=== PATIENT | female | born 1970 | race American Indian/Alaskan Native ===

== ENCOUNTER 2018-07-16 12:42 | Emergency (ER) | payer BC ==
[2018-07-16 12:55] VITALS: BP 146/59
--- NOTE | 2018-07-16 13:25 | Emergency Department Report ---
ED Abdominal Pain HPI - General Chief Complaint: Abdominal Pain Stated Complaint: BLOOD TRANSFUSION Source: patient Mode of arrival: Ambulatory Limitations: No Limitations - History of Present Illness Initial Comments: This is a 47-year-old female who presents with upper abdominal pain. Patient states it feels like gas that she cannot leave. She reports having a bowel movement this morning that were hard balls. Patient states she was admitted here 2 days ago for anemia and blood transfusion. She was released this morning and reports feeling better. She denies chest pain, shortness of breath, nausea or vomiting, vaginal bleeding, frequency, urgency, dysuria, or vaginal discharge. MD Complaint: abdominal pain -: This morning Location: LUQ, RUQ Radiation: none Migration to: no migration Severity: mild Severity scale (0 -10): 0 Quality: cramping Consistency: intermittent Improves With: bowel movement Worsens With: nothing Associated Symptoms: denies other symptoms - Related Data LMP Date: 07/02/18 Previous Rx's Medication Instructions Recorded Last Taken Type Ferrous Sulfate [Feosol 325 MG tab] 325 mg PO BID #60 tablet 07/15/18 Unknown Rx Polyethylene Glycol/Elect 4,000 ml PO ONCE #1 bottle 07/16/18 Unknown Rx [Golytely] Allergies Allergy/AdvReac Type Severity Reaction Status Date / Time No Known Allergies Allergy Unverified 04/19/17 12:35 ED Review of Systems ROS: Stated complaint: BLOOD TRANSFUSION Other details as noted in HPI Constitutional: denies: chills, fever Respiratory: denies: cough, shortness of breath, wheezing Cardiovascular: denies: chest pain, palpitations Gastrointestinal: abdominal pain (upper abdominal cramping). denies: nausea, vomiting, diarrhea Musculoskeletal: denies: back pain, joint swelling, arthralgia Neurological: denies: headache, weakness, paresthesias Psychiatric: denies: anxiety, depression ED Past Medical Hx - Past Medical History Hx Congestive Heart Failure: No Hx Diabetes: No Hx Asthma: No Hx COPD: No Additional medical history: anemia - Surgical History Past Surgical History?: Yes Additional Surgical History: . tubal ligation - Social History Smoking Status: Current Every Day Smoker Substance Use Type: Marijuana - Medications Home Medications: Home Medications Medication Instructions Recorded Confirmed Last Taken Type Ferrous Sulfate [Feosol 325 MG tab] 325 mg PO BID #60 tablet 07/15/18 Unknown Rx Polyethylene Glycol/Elect 4,000 ml PO ONCE #1 bottle 07/16/18 Unknown Rx [Golytely] ED Physical Exam - General Limitations: No Limitations General appearance: alert, in no apparent distress, obese - Respiratory Respiratory exam: Present: normal lung sounds bilaterally. Absent: respiratory distress - Cardiovascular Cardiovascular Exam: Present: regular rate, normal rhythm. Absent: systolic murmur, diastolic murmur, rubs, gallop - GI/Abdominal GI/Abdominal exam: Present: soft, normal bowel sounds. Absent: distended, tenderness, guarding, rebound, rigid, organomegaly, mass - Back Exam Back exam: Absent: CVA tenderness (R), CVA tenderness (L) - Neurological Exam Neurological exam: Present: alert, oriented X3 - Psychiatric Psychiatric exam: Present: normal affect, normal mood - Skin Skin exam: Present: warm, dry, intact, normal color. Absent: rash ED Course Vital Signs 07/16/18 12:51 Temperature 98.5 F Pulse Rate 73 Respiratory 16 Rate Blood Pressure 146/59 O2 Sat by Pulse 100 Oximetry ED Medical Decision Making - Radiology Data Radiology results: report reviewed X-ray of abdomen impression: Large amount of retained stool in the colon. - Medical Decision Making This is a 47 y.o. female that presents with abdominal cramping for several days. Patient examined by me. No distress noted. Vitals stable. Obtained x-ray of abdomen. Large amount of retained stool in the colon. Given lactulose 20 gram by mouth once while in ER. Start GoLYTELY. Instructed to start miralax and docusate sodium. Increase fiber water intake for constipation. Follow up with [facility]. Critical care attestation.: If time is entered above; I have spent that time in minutes in the direct care of this critically ill patient, excluding procedure time. ED Disposition Clinical Impression: Constipation by delayed colonic transit Abdominal pain Qualifiers: Abdominal location: generalized Qualified Code(s): R10.84 - Generalized abdominal pain Disposition: TO HOME OR SELFCARE Is pt being admited?: No Does the pt Need Aspirin: No Condition: Stable Instructions: Abdominal Pain (ED), Constipation (ED), High Fiber Diet (ED) Additional Instructions: Increase fiber intake with foods and/or MiraLAX. Increase water intake and drink or eat prunes. Take colace daily to soften stool. Avoid taking laxatives during . Follow up with primary care provider. Prescriptions: Polyethylene Glycol/Elect [Golytely] 4,000 ml PO ONCE #1 bottle Referrals: BETSY RILEY [Primary Care Provider] - 3-5 Days [facility] [Provider Group] - 3-5 Days [facility] [Provider Group] - 3-[address] [facility] [Provider Group] - 3-5 Days Forms: Work/School Release Form(ED) Time of Disposition: 14:51
--- NOTE | 2018-07-16 14:23 | XRay Report ---
FINAL REPORT EXAM: XR ABDOMEN 2V HISTORY: upper abdominal pain TECHNIQUE: AP abdominal radiograph. PRIORS: None. FINDINGS: There is a large amount of retained stool in the colon. No bowel obstruction. No organomegaly or masses. No abnormal calcifications. No acute osseous abnormality. Tubal ligation clips project in the pelvis. IMPRESSION: Large amount of retained stool in the colon.
[2018-07-16] MEDS ORDERED: CEPHULAC PO ONE (14:31)
== END 2018-07-16 14:59 | disposition home or self-care (01) ==
LOC: ED 12:42
DX: K59.00 Constipation, unspecified (principal); F17.200 Nicotine dependence, unspecified, uncomplicated; F12.10 Cannabis abuse, uncomplicated
CPT/HCPCS: 74019

== ENCOUNTER 2020-08-30 15:32 | Emergency (ER) | payer BC ==
[2020-08-30] MEDS ORDERED: ASPIRIN 325 MG TAB PO ONE (15:52)
--- NOTE | 2020-08-30 16:15 | Event Note ---
ED Screening Note Date of service: 08/30/20 Time: 16:14 ED Screening Note: Patient presented with complaint of substernal chest pain and increased blood pain for the past 3 to 4 days. She was recently diagnosed with hypertension and started on hydrochlorothiazide. She has no other significant past history This initial assessment/diagnostic orders/clinical plan/treatment(s) is/are subject to change based on patients health status, clinical progression and re- assessment by fellow clinical providers in the ED. Further treatment and workup at subsequent clinical providers discretion. Patient/guardian urged not to elope from the ED as their condition may be serious if not clinically assessed and managed. Initial orders include: Chest pain order set
--- NOTE | 2020-08-30 16:29 | XRay Report ---
CHEST 2 VIEWS INDICATION / CLINICAL INFORMATION: Chest Pain. COMPARISON: 07/16/2018 abdominal radiograph FINDINGS: SUPPORT DEVICES: None. HEART / MEDIASTINUM: No significant abnormality. LUNGS / PLEURA: No significant pulmonary or pleural abnormality. No pneumothorax. ADDITIONAL FINDINGS: No significant additional findings. IMPRESSION: 1. No acute findings. Signer Name: Paulie Rosenberg MD Signed: 08/30/2020 4:24 PM Workstation Name: [id number]
--- NOTE | 2020-08-30 16:49 | Emergency Department Report ---
ED Chest Pain HPI - General Chief Complaint: Chest Pain Stated Complaint: CHEST PAIN Time Seen by Provider: 08/30/20 16:39 Source: patient Mode of arrival: Ambulatory Limitations: No Limitations - History of Present Illness Initial Comments: Patient is 49 years old female with a recent diagnosis of high blood pressure and recently started on hydrochlorothiazide. Patient presented to the ER complaining of left-sided chest pain, on and off for the last 5 days. Patient stated that pain associated with burping. Patient stated that she does not have any pain at this moment. Patient denied any shortness of breath, fever or cough. No abdominal pain, nausea or vomiting. MD Complaint: chest pain -: Gradual, days(s) (4) Onset: during rest Pain Location: left chest Severity scale (0 -10): 4 Quality: tightness Consistency: intermittent - Related Data Previous Rx's Medication Instructions Recorded Last Taken Type Ferrous Sulfate [Feosol 325 MG tab] 325 mg PO BID #60 tablet 07/15/18 Unknown Rx Polyethylene Glycol/Elect 4,000 ml PO ONCE #1 bottle 07/16/18 Unknown Rx [Golytely] Esomeprazole Magnesium [NexIUM] 40 mg PO QDAY #30 capsule. 08/30/20 Unknown Rx amLODIPine [Norvasc] 5 mg PO DAILY #30 tab 08/30/20 Unknown Rx Allergies Allergy/AdvReac Type Severity Reaction Status Date / Time No Known Allergies Allergy Unverified 04/19/17 12:35 Heart Score - HEART Score History: Slightly suspicious EKG: Normal Age: 45-65 Risk factors: 1-2 risk factors Troponin: < normal limit HEART Score: 2 - Critical Actions Critical Actions: 0-3 pts:0.9-1.7%risk of adverse cardiac event.Candidate for discharge ED Review of Systems ROS: Stated complaint: CHEST PAIN Other details as noted in HPI Comment: All other systems reviewed and negative Constitutional: denies: chills, fever Respiratory: denies: cough, shortness of breath, SOB with exertion Cardiovascular: chest pain. denies: palpitations, dyspnea on exertion Gastrointestinal: denies: abdominal pain, nausea, vomiting Neurological: denies: headache, weakness, numbness, paresthesias, confusion ED Past Medical Hx - Past Medical History Previous Medical History?: Yes Hx Hypertension: Yes Hx Congestive Heart Failure: No Hx Diabetes: No Hx Asthma: No Hx COPD: No Additional medical history: anemia - Surgical History Past Surgical History?: Yes Additional Surgical History: . tubal ligation - Social History Smoking Status: Current Some Day Smoker Substance Use Type: Alcohol, Marijuana - Medications Home Medications: Home Medications Medication Instructions Recorded Confirmed Last Taken Type Ferrous Sulfate [Feosol 325 MG tab] 325 mg PO BID #60 tablet 07/15/18 Unknown Rx Polyethylene Glycol/Elect 4,000 ml PO ONCE #1 bottle 07/16/18 Unknown Rx [Golytely] Esomeprazole Magnesium [NexIUM] 40 mg PO QDAY #30 capsule.dr 08/30/20 Unknown Rx amLODIPine [Norvasc] 5 mg PO DAILY #30 tab 08/30/20 Unknown Rx ED Physical Exam - General Limitations: No Limitations General appearance: alert, in no apparent distress - Head Head exam: Present: atraumatic, normocephalic, normal inspection - Eye Eye exam: Present: normal appearance, PERRL - ENT ENT exam: Present: normal orophraynx - Neck Neck exam: Present: normal inspection, full ROM. Absent: tenderness, meningismus - Respiratory Respiratory exam: Present: normal lung sounds bilaterally - Cardiovascular Cardiovascular Exam: Present: regular rate, normal rhythm, normal heart sounds - GI/Abdominal GI/Abdominal exam: Present: soft, normal bowel sounds. Absent: distended, tenderness, guarding, rebound, rigid, organomegaly, mass, bruit, pulsatile mass, hernia - Extremities Exam Extremities exam: Present: normal inspection, full ROM, normal capillary refill. Absent: tenderness - Back Exam Back exam: Present: normal inspection, full ROM. Absent: CVA tenderness (R), CVA tenderness (L) - Neurological Exam Neurological exam: Present: alert, oriented X3, CN II-XII intact - Psychiatric Psychiatric exam: Present: normal mood - Skin Skin exam: Present: warm, intact, normal color ED Course Vital Signs 08/30/20 08/30/20 08/30/20 15:45 16:46 17:01 Temperature 98.5 F Pulse Rate 85 69 63 Respiratory 20 11 L 10 L Rate Blood Pressure 188/95 Blood Pressure 188/95 [Right] O2 Sat by Pulse 99 100 99 Oximetry ED Medical Decision Making - Lab Data Result diagrams: 08/30/20 16:39 08/30/20 16:39 - EKG Data -: EKG Interpreted by Me EKG shows normal: sinus rhythm Rate: normal - EKG Data Interpretation: no acute changes - Radiology Data Radiology results: report reviewed - Medical Decision Making Patient is 49 years old female with a recent diagnosis of high blood pressure and recently started on hydrochlorothiazide. Patient presented to the ER complaining of left-sided chest pain, on and off for the last 5 days. Patient stated that pain associated with burping. Patient stated that she does not have any pain at this moment. Patient denied any shortness of breath, fever or cough. No abdominal pain, nausea or vomiting. Critical care attestation.: If time is entered above; I have spent that time in minutes in the direct care of this critically ill patient, excluding procedure time. ED Disposition Clinical Impression: Acute chest pain, Malignant hypertension Disposition: - TO HOME OR SELFCARE Is pt being admited?: No Condition: Stable Instructions: Chest Pain (ED), Hypertension (ED), Nonspecific Chest Pain, Adult, [id number] Prescriptions: amLODIPine [Norvasc] 5 mg PO DAILY #30 tab Esomeprazole Magnesium [NexIUM] 40 mg PO QDAY #30 capsule. Referrals: [facility] [Other] - 3-5 Days HENRY MONTOYA MD [Staff Physician] - 3-5 Days
[2020-08-30 16:54] LABS: Basophils # (Auto) 0.1 K/mm3 (0.0-0.1); Basophils % (Auto) 0.8 % (0.0-1.8); Hematocrit 35.8 % (30.3-42.9); Lymphocytes # (Auto) 1.5 K/mm3 (1.2-5.4); Lymphocytes % (Auto) 15.7 % (13.4-35.0); Mean Corpuscular HGB Conc 31 % (30-34); Mean Corpuscular Volume 74 fl (79-97); Monocytes # (Auto) 0.7 K/mm3 (0.0-0.8); Platelet Count 239 K/mm3 (140-440); Red Blood Count 4.82 M/mm3 (3.65-5.03); Red Cell Distribution Width 19.7 % (13.2-15.2)
[2020-08-30 17:08] LABS: INR 0.99 (0.87-1.13)
[2020-08-30 17:09] LABS: Partial Thromboplastin Time 30.1 Sec. (24.2-36.6)
[2020-08-30 17:19] LABS: Alanine Aminotransferase 13 units/L (7-56); Albumin 4.2 g/dL (3.9-5); BUN/Creatinine Ratio 10; Blood Urea Nitrogen 9 mg/dL (7-17); Calcium 9.1 mg/dL (8.4-10.2); Hemolysis Index 9
[2020-08-30 18:04] VITALS: BP 157/71
== END 2020-08-30 18:05 | disposition home or self-care (01) ==
LOC: ED 15:32
DX: R07.89 Other chest pain (principal); I10 Essential (primary) hypertension; F17.200 Nicotine dependence, unspecified, uncomplicated; F12.10 Cannabis abuse, uncomplicated; Z98.51 Tubal ligation status; Z98.890 Other specified postprocedural states; Z79.899 Other long term (current) drug therapy
CPT/HCPCS: 36415; 71046; 80053; 83690; 84484; 85025; 85610; 85730; 93005

== ENCOUNTER 2021-03-17 19:09 | Emergency (ER) | payer BC ==
--- NOTE | 2021-03-17 21:53 | Emergency Department Report ---
ED General Adult HPI - General Chief complaint: Extremity Injury, Lower Stated complaint: L FOOT INJURY Time Seen by Provider: 03/17/21 21:47 Source: patient Mode of arrival: Wheelchair Limitations: No Limitations - History of Present Illness Initial comments: 50-year-old female patient presents emergency department with complaints of left lower leg, left ankle, and left foot pain status post mechanical fall yesterday. Patient states she accidentally twisted her foot and subsequently struck her lower leg on an unknown object while attempting to get out of her car. There was no resulting fall, head injury, or loss of consciousness. No history of prior injuries to the left lower extremity. Denies hip pain, knee pain, paresthesias, numbness, weakness. Denies all other complaints at this time. - Related Data Previous Rx's Medication Instructions Recorded Last Taken Type Ferrous Sulfate [Feosol 325 MG tab] 325 mg PO BID #60 tablet 07/15/18 Unknown Rx Polyethylene Glycol/Elect 4,000 ml PO ONCE #1 bottle 07/16/18 Unknown Rx [Golytely] Esomeprazole Magnesium [NexIUM] 40 mg PO QDAY #30 capsule.dr 08/30/20 Unknown Rx amLODIPine [Norvasc] 5 mg PO DAILY #30 tab 08/30/20 Unknown Rx Naproxen 500 mg PO BID #20 tablet 03/17/21 Unknown Rx Allergies Allergy/AdvReac Type Severity Reaction Status Date / Time No Known Allergies Allergy Verified 03/17/21 21:41 ED Review of Systems ROS: Stated complaint: L FOOT INJURY Other details as noted in HPI Other: CARDIOVASCULAR: Negative for chest pain. PULMONARY: Negative for dyspnea. GASTROINTESTINAL: Negative for abdominal pain. MUSCULOSKELETAL: Positive for leg pain, ankle pain, foot pain. NEUROLOGICAL: Negative for headache. INTEGUMENTARY: Negative for ecchymosis. ED Past Medical Hx - Past Medical History Hx Hypertension: Yes Hx Congestive Heart Failure: No Hx Diabetes: No Hx Asthma: No Hx COPD: No Additional medical history: anemia - Surgical History Additional Surgical History: . tubal ligation - Social History Smoking Status: Current Some Day Smoker Substance Use Type: Alcohol, Marijuana - Medications Home Medications: Home Medications Medication Instructions Recorded Confirmed Last Taken Type Ferrous Sulfate [Feosol 325 MG tab] 325 mg PO BID #60 tablet 07/15/18 Unknown Rx Polyethylene Glycol/Elect 4,000 ml PO ONCE #1 bottle 07/16/18 Unknown Rx [Golytely] Esomeprazole Magnesium [NexIUM] 40 mg PO QDAY #30 capsule. 08/30/20 Unknown Rx amLODIPine [Norvasc] 5 mg PO DAILY #30 tab 08/30/20 Unknown Rx Naproxen 500 mg PO BID #20 tablet 03/17/21 Unknown Rx ED Physical Exam - General Limitations: No Limitations - Other Other exam information: General: Awake, appropriately interactive, no acute distress. Neck: Supple. Full range of motion intact. Cardiovascular: Normal peripheral perfusion. Pulmonary: No respiratory distress. Patient is speaking normally without use of accessory muscles. Skin: No apparent rashes or lesions. Neurological: No facial asymmetry. Speech is clear. Follows commands. Patient is alert and oriented. Musculoskeletal: Tenderness to palpation along the left medial malleolus without obvious deformity or dislocation. No tenderness at the base of the fifth metatarsal. No navicular tenderness. Diaz test is negative. No plantar ecchymosis. Distal neurovascular and motor/sensory function intact. Patient reluctant to bear weight. Psych: Cooperative. Appropriate mood and affect. ED Course Vital Signs 03/17/21 21:43 Temperature 98.7 F Pulse Rate 74 Respiratory 22 Rate Blood Pressure 152/62 O2 Sat by Pulse 100 Oximetry ED Medical Decision Making - Radiology Data [facility] [address] [place] [address] XRay Report Signed Patient: TABBY LUU MR#: [id number] : 1970 Acct:[id number] Age/Sex: 50 / F ADM Date: 03/17/21 Loc: ED Attending Dr: Ordering Physician: BRYAN TESFAYE Date of Service: 03/17/21 Procedure(s): XR ankle 3+V LT Accession Number(s): [id number] cc: BRYAN TESFAYE Fluoro Time In Minutes: LEFT ANKLE 4 VIEW(S) INDICATION / CLINICAL INFORMATION: fall COMPARISON: None available. FINDINGS: BONES / JOINT(S): No acute fracture or subluxation. Mild degenerative changes.. 4 mm ossicle adjacent to the medial malleolus, likely related to chronic injury. SOFT TISSUES: No significant abnormality. ADDITIONAL FINDINGS: Achilles insertional enthesophytosis of the calcaneus. Signer Name: Saturnino Holcomb MD Signed: 03/17/2021 10:32 PM Workstation Name: [id number] Transcribed By: SB Dictated By: SATURNINO HOLCOMB MD Electronically Authenticated By: SATURNINO HOLCOMB MD Signed Date/Time: 03/17/212231 DD/ 30 TD/TT: - Medical Decision Making Differential diagnosis including but not limited to: sprain, strain, fracture, contusion, dislocation, Achilles tendon injury On reevaluation, patient remains stable. Repeat neurovascular exam remains intact. X-rays show Achilles insertional enthesophytosis of the calcaneus, no acute fracture or dislocation. No clinical indication for further diagnostic work-up on an emergent basis at this time. Patient will be placed in an Manny wrap, provided with crutches, and discharged home with appropriate analgesics and a referral to orthopedics for close outpatient follow-up. Patient has been provided with a copy of today's imaging results and instructed to bring this copy with her to her follow-up appointment. Patient expressed understanding and is agreeable to plan of care. RICE precautions discussed. Strict return precautions provided. Repeat exam is unremarkable and benign. History, exam, diagnostic testing, and current condition do not suggest worrisome pathology to warrant further testing, continued ED treatment, admission, or surgical evaluation at this point. Given the low probability of a significant medical illness, it would be more likely to result in harm than benefit to perform further testing at this stage. Discussed findings, presumptive diagnosis, need for follow-up and specific signs/symptoms that should prompt immediate return to the emergency department. Instructions were explained in detail to the patient in addition to giving written discharge information. Patient expressed understanding and was given the opportunity to ask questions, all of which were satisfactorily answered prior to discharge home. Critical care attestation.: If time is entered above; I have spent that time in minutes in the direct care of this critically ill patient, excluding procedure time. ED Disposition Clinical Impression: Left ankle sprain Qualifiers: Encounter type: initial encounter Involved ligament of ankle: unspecified ligament Qualified Code(s): S93.402A - Sprain of unspecified ligament of left ankle, initial encounter Heel spur Qualifiers: Laterality: left Qualified Code(s): M77.32 - Calcaneal spur, left foot Disposition: 01 HOME / SELF CARE / HOMELESS Is pt being admited?: No Does the pt Need Aspirin: No Condition: Stable Instructions: Elastic Bandage and RICE Therapy Additional Instructions: Take Tylenol every 4 hours as needed for pain. Take Naprosyn twice daily with food as needed for pain. Wear Manny wrap as directed. Use crutches as needed. Gradually advance physical activity slowly as tolerated. Follow-up with Dr. Duron, orthopedics, this week. Call tomorrow to schedule an appointment. See referral information below. A copy of today's imaging results with you to your follow-up appointment. Return to the emergency department immediately for new or worsening symptoms. Prescriptions: Naproxen 500 mg PO BID #20 tablet Referrals: MARY DURON MD [Staff Physician] - 3-5 Days Forms: Work/School Release Form(ED) Time of Disposition: 23:06
--- NOTE | 2021-03-17 22:34 | XRay Report ---
LEFT FOOT 3 VIEW(S) INDICATION / CLINICAL INFORMATION: fall COMPARISON: None available. FINDINGS: BONES / JOINT(S): No acute fracture or subluxation. No significant arthritis. SOFT TISSUES: No significant abnormality. ADDITIONAL FINDINGS: Distal Achilles tendon enthesophytosis. Signer Name: Saturnino Holcomb MD Signed: 03/17/2021 10:30 PM Workstation Name: [id number]
--- NOTE | 2021-03-17 22:37 | XRay Report ---
LEFT ANKLE 4 VIEW(S) INDICATION / CLINICAL INFORMATION: fall COMPARISON: None available. FINDINGS: BONES / JOINT(S): No acute fracture or subluxation. Mild degenerative changes.. 4 mm ossicle adjacent to the medial malleolus, likely related to chronic injury. SOFT TISSUES: No significant abnormality. ADDITIONAL FINDINGS: Achilles insertional enthesophytosis of the calcaneus. Signer Name: Saturnino Holcomb MD Signed: 03/17/2021 10:32 PM Workstation Name: [id number]
--- NOTE | 2021-03-17 22:37 | XRay Report ---
LEFT TIBIA-FIBULA 2 VIEW(S) INDICATION / CLINICAL INFORMATION: fall COMPARISON: None available. FINDINGS: BONES / JOINT(S): No acute fracture or subluxation. No significant arthritis. SOFT TISSUES: No significant abnormality. ADDITIONAL FINDINGS: None. Signer Name: Saturnino Holcomb MD Signed: 03/17/2021 10:33 PM Workstation Name: [id number]
[2021-03-17 23:00] VITALS: BP 152/62
[2021-03-17] MEDS ORDERED: IBUPROFEN 800 MG TAB PO ONE (23:03)
[2021-03-17] MEDS ORDERED: ACETAMINOPHEN 500 MG TAB PO ONE (23:03)
== END 2021-03-18 00:01 | disposition home or self-care (01) ==
LOC: ED 19:09
DX: S93.402A Sprain of unspecified ligament of left ankle, initial encounter (principal); M77.32 Calcaneal spur, left foot; I10 Essential (primary) hypertension; F17.200 Nicotine dependence, unspecified, uncomplicated; F10.20 Alcohol dependence, uncomplicated; F12.90 Cannabis use, unspecified, uncomplicated; W19.XXXA Unspecified fall, initial encounter; Y93.89 Activity, other specified; Y92.89 Other specified places as the place of occurrence of the external cause; Y99.8 Other external cause status
CPT/HCPCS: 99284

== ENCOUNTER 2021-09-23 07:28 | Emergency (ER) | payer BC ==
--- NOTE | 2021-09-23 08:01 | Emergency Department Report ---
ED Abdominal Pain HPI - General Chief Complaint: Abdominal Pain Stated Complaint: ABDOMINAL PAIN PUI?: No Time Seen by Provider: 09/23/21 07:44 Source: patient Mode of arrival: Ambulatory Limitations: No Limitations - History of Present Illness Initial Comments: Patient is a 50-year-old female that comes to the emergency room complaining of diffuse abdominal pain. She is very vague in describing her pain. She will point to her upper stomach and her lower stomach. She denies nausea or vomiting. Denies diarrhea. Denies any constipation. Denies fever or chills. Patient denies dysuria or vaginal discharge. Patient is perimenopausal. She has not seen her primary care doctor for her pain. Patient has taken nothing pr ior to arrival in the ER for the pain. MD Complaint: abdominal pain -: Gradual, days(s) Location: diffuse Consistency: intermittent Improves With: other (Flatus) Worsens With: nothing Associated Symptoms: denies other symptoms. denies: nausea, vomiting, diarrhea, fever, chills, constipation, dysuria, hematemesis, hematochezia, melena, hematuria, anorexia, syncope - Related Data Previous Rx's Medication Instructions Recorded Last Taken Type Ferrous Sulfate [Feosol 325 MG tab] 325 mg PO BID #60 tablet 07/15/18 Unknown Rx Polyethylene Glycol/Elect 4,000 ml PO ONCE #1 bottle 07/16/18 Unknown Rx [Golytely] Esomeprazole Magnesium [NexIUM] 40 mg PO QDAY #30 capsule. 08/30/20 Unknown Rx amLODIPine [Norvasc] 5 mg PO DAILY #30 tab 08/30/20 Unknown Rx Naproxen 500 mg PO BID #20 tablet 03/17/21 Unknown Rx Allergies Allergy/AdvReac Type Severity Reaction Status Date / Time No Known Allergies Allergy Verified 03/17/21 21:41 ED Review of Systems ROS: Stated complaint: ABDOMINAL PAIN Other details as noted in HPI Comment: All other systems reviewed and negative ED Past Medical Hx - Past Medical History Previous Medical History?: Yes Hx Hypertension: Yes Hx Congestive Heart Failure: No Hx Diabetes: No Hx Asthma: No Hx COPD: No Additional medical history: anemia - Surgical History Past Surgical History?: Yes Additional Surgical History: . tubal ligation - Family History Family history: no significant - Social History Smoking Status: Never Smoker Substance Use Type: None - Medications Home Medications: Home Medications Medication Instructions Recorded Confirmed Last Taken Type Ferrous Sulfate [Feosol 325 MG tab] 325 mg PO BID #60 tablet 07/15/18 Unknown Rx Polyethylene Glycol/Elect 4,000 ml PO ONCE #1 bottle 07/16/18 Unknown Rx [Golytely] Esomeprazole Magnesium [NexIUM] 40 mg PO QDAY #30 capsule. 08/30/20 Unknown Rx amLODIPine [Norvasc] 5 mg PO DAILY #30 tab 08/30/20 Unknown Rx Naproxen 500 mg PO BID #20 tablet 03/17/21 Unknown Rx ED Physical Exam - General Limitations: No Limitations General appearance: alert, in no apparent distress - Head Head exam: Present: atraumatic, normocephalic - Eye Eye exam: Present: normal appearance - ENT ENT exam: Present: mucous membranes moist - Neck Neck exam: Present: normal inspection - Respiratory Respiratory exam: Present: normal lung sounds bilaterally. Absent: respiratory distress - Cardiovascular Cardiovascular Exam: Present: regular rate, normal rhythm. Absent: systolic murmur, diastolic murmur, rubs, gallop - GI/Abdominal GI/Abdominal exam: Present: soft, normal bowel sounds - Extremities Exam Extremities exam: Present: normal inspection - Back Exam Back exam: Present: normal inspection - Neurological Exam Neurological exam: Present: alert, oriented X3 - Psychiatric Psychiatric exam: Present: normal affect, normal mood - Skin Skin exam: Present: warm, dry, intact, normal color. Absent: rash ED Course Vital Signs 09/23/21 09/23/21 09/23/21 07:37 08:17 11:16 Temperature 98.1 F Pulse Rate 84 80 Respiratory 14 14 16 Rate Blood Pressure 139/75 Blood Pressure 130/80 [Left] O2 Sat by Pulse 100 99 Oximetry ED Medical Decision Making - Lab Data Result diagrams: 09/23/21 08:12 09/23/21 08:12 - Radiology Data Radiology results: report reviewed, image reviewed interpreted by me: Large stool burden See report - Medical Decision Making Lab Results 09/23/21 09/23/21 09/23/21 Range/Units 08:12 08:12 09:27 WBC 8.0 (4.5-11.0) K/mm3 RBC 4.46 (3.65-5.03) M/mm3 Hgb 11.8 (10.1-14.3) gm/dl Hct 37.5 (30.3-42.9) % MCV 84 (79-97) fl MCH 26 L (28-32) pg MCHC 31 (30-34) % RDW 16.5 H (13.2-15.2) % Plt Count 196 (140-440) K/mm3 Lymph % (Auto) 14.7 (13.4-35.0) % Sully % (Auto) 4.6 (0.0-7.3) % Eos % (Auto) 0.6 (0.0-4.3) % Baso % (Auto) 0.7 (0.0-1.8) % Lymph # (Auto) 1.2 (1.2-5.4) K/mm3 Sully # (Auto) 0.4 (0.0-0.8) K/mm3 Eos # (Auto) 0.0 (0.0-0.4) K/mm3 Baso # (Auto) 0.1 (0.0-0.1) K/mm3 Seg Neutrophils % 79.4 H (40.0-70.0) % Seg Neutrophils # 6.4 (1.8-7.7) K/mm3 Sodium 138 (137-145) mmol/L Potassium 3.7 (3.6-5.0) mmol/L Chloride 101.9 (98-107) mmol/L Carbon Dioxide 26 (22-30) mmol/L Anion Gap 14 mmol/L BUN 12 (7-17) mg/dL Creatinine 0.8 (0.6-1.2) mg/dL Estimated GFR > 60 ml/min BUN/Creatinine Ratio 15 % Glucose 95 (65-100) mg/dL Calcium 9.2 (8.4-10.2) mg/dL Total Bilirubin 0.20 (0.1-1.2) mg/dL AST 12 (5-40) units/L ALT 11 (7-56) units/L Alkaline Phosphatase 66 (35-129) units/L Total Protein 7.2 (6.3-8.2) g/dL Albumin 3.7 L (3.9-5) g/dL Albumin/Globulin Ratio 1.1 % Lipase 22 (13-60) units/L Urine Bilirubin Neg (Negative) Urine RBC (Auto) 1.0 (0.0-6.0) /HPF U Epithel Cells (Auto) 2.0 (0-13.0) /HPF Urine HCG, Qual Negative (Negative) Labs noted uA noted U xray noted with large stool burden gi cocktail with some relief-- flatus mg citrate po before discharge. Patient educated on the findings of her lab results as well as her x-ray today. Patient educated on taking Colace with her iron. This will prevent her constipation and GI upset. Patient being discharged home with discharge plan of care including diet, activity, medications and follow-up. She verbalizes understanding of the need to take Colace with her arm. She verbalizes understanding of discharge plan. - Differential Diagnosis UTI/cholecystitis/uterine fibroids Critical care attestation.: If time is entered above; I have spent that time in minutes in the direct care of this critically ill patient, excluding procedure time. ED Disposition Clinical Impression: Abdominal pain Qualifiers: Abdominal location: generalized Qualified Code(s): R10.84 - Generalized abdominal pain Constipation Qualifiers: Constipation type: other constipation type Qualified Code(s): K59.09 - Other constipation Disposition: 01 HOME / SELF CARE / HOMELESS Is pt being admited?: No Does the pt Need Aspirin: No Condition: Stable Instructions: Constipation, Adult, Abdominal Pain (ED) Additional Instructions: Continue home meds. Make sure you are taking Colace twice per day, you can get this [id number], with your iron. Follow-up with [facility] for your fibroid concerns Follow-up with your PCP as needed Stay well-hydrated with water: Consider prune juice or other high-fiber foods and drinks Referrals: BETSY RILEY MD [Primary Care Provider] - 3-5 Days Time of Disposition: 10:30
[2021-09-23] MEDS: LIDOCAINE VISCOUS 2% 15 ML ORAL LIQD PO ONE (08:17)
[2021-09-23] MEDS: ALUM-MAG HYDROXIDE-SIMETHICONE 200-200-20MG/5ML ORAL LIQD 30 ML PO ONE (08:17)
[2021-09-23] MEDS: IBUPROFEN 800 MG TAB PO ONE (08:17)
[2021-09-23] MEDS: FAMOTIDINE 20 MG TAB PO ONE (08:18)
[2021-09-23 08:46] LABS: Alanine Aminotransferase 11 units/L (7-56); Albumin 3.7 g/dL (3.9-5); BUN/Creatinine Ratio 15; Blood Urea Nitrogen 12 mg/dL (7-17); Calcium 9.2 mg/dL (8.4-10.2); Hemolysis Index 4
[2021-09-23 08:49] LABS: Basophils # (Auto) 0.1 K/mm3 (0.0-0.1); Basophils % (Auto) 0.7 % (0.0-1.8); Eosinophils % (Auto) 0.6 % (0.0-4.3); Hematocrit 37.5 % (30.3-42.9); Hemoglobin 11.8 gm/dl (10.1-14.3); Lymphocytes # (Auto) 1.2 K/mm3 (1.2-5.4); Lymphocytes % (Auto) 14.7 % (13.4-35.0); Mean Corpuscular HGB Conc 31 % (30-34); Mean Corpuscular Volume 84 fl (79-97); Monocytes # (Auto) 0.4 K/mm3 (0.0-0.8); Monocytes % (Auto) 4.6 % (0.0-7.3); Platelet Count 196 K/mm3 (140-440); Red Blood Count 4.46 M/mm3 (3.65-5.03); Red Cell Distribution Width 16.5 % (13.2-15.2)
[2021-09-23 10:12] LABS: Bilirubin,Urine NEG (Negative); Blood,Urine SM (Negative); Color,Urine Yellow (Yellow); HCG Qualitative,Urine Negative (Negative); Mucus,Urine FEW /HPF; Protein,Urine <15 mg/dL mg/dL (Negative); Urobilinogen,Urine < 2.0 mg/dL (<2.0)
--- NOTE | 2021-09-23 10:42 | XRay Report ---
ABDOMEN 2 VIEWS INDICATION / CLINICAL INFORMATION: abd pain. COMPARISON: Abdomen x-ray 07/16/2018 FINDINGS: TUBES / LINES: None. BOWEL GAS PATTERN: Moderate amount of solid stool. FREE AIR / EXTRALUMINAL GAS: None seen. ADDITIONAL FINDINGS: No significant additional findings. CHEST: Visualized chest shows no significant abnormality. IMPRESSION: 1. No acute findings. 2. Moderate constipation Signer Name: Hakan Chino MD Signed: 09/23/2021 10:37 AM Workstation Name: [employer]
[2021-09-23 11:16] VITALS: BP 130/80
[2021-09-23] MEDS: MAGNESIUM CITRATE 300 ML ORAL LIQD PO ONE (11:29)
== END 2021-09-23 11:32 | disposition home or self-care (01) ==
LOC: ED 07:28
DX: R10.84 Generalized abdominal pain (principal); K59.09 Other constipation; I10 Essential (primary) hypertension
CPT/HCPCS: 36415; 74018; 80053; 81001; 81025; 83690; 85025; 99284